=== PATIENT | female | born 1990 | race Caucasian/White ===

== ENCOUNTER 2018-03-12 12:47 | Observation (INO) ==
[2018-03-12] MEDS ORDERED: Betamethasone Acet/SodPhos 6 MG/ML MDV IM SCH (14:00)
[2018-03-12 14:58] LABS: Prothrombin Time 10.7 Seconds (9.4-12.1)
[2018-03-12 15:02] LABS: Rubella IgG Antibody POSITIVE (POSITIVE); Varicella Zoster IgG Antibody Positive
[2018-03-12 15:21] LABS: HIV-1&2 Antibody & p24 Ag Nonreactive (Nonreactive); Hepatitis B Surface Antigen Nonreactive (Nonreactive)
--- NOTE | 2018-03-12 15:59 | OB/GYN Progress Note ---
Date of Encounter: 03/12/18 Time of Encounter: 15:50 - Assessment and Plan (1) Vaginal bleeding Current Visit: Yes Status: Lexx Sparks is a 27 y/o who presented to the office initially with vaginal bleeding. She called yesterday with heavy vaginal bleeding that filled the toilet. She presented to the office and showed pictures on her phone and it was quite significant. She says she has stopped bleeding, no LOF or ctxs, feels good FM. U/S done in the office shows a 12cm bleed. She has a h/o delivery due to abruption and she is a smoker. Her glucola test today was 200. VE exam showed approx 30cc of blood, cervix examined for several mins after extraction of blood and no active bleeding noted, 1cm patient sent to L&D for monitoring, labs, BMZ 27 y/o @ 28+2 weeks Placenta abruption, h/o for abruption, smoker BMZ #1 given at 1423hrs, NST reactive, cervix unchanged @ 1cm, spoke to Dr Vitale about my findings (abruption, 12cm bleed on U/S, unable to keep patient on prolonged observation due to facility) patient is hemodynamically stable, O+, Coags normal, vitals stable ok for transfer to [facility] Objective - Vital Signs Vital Signs: Intake and Output 03/11/18 03/12/18 03/12/18 23:59 07:59 15:59 Other: Weight 120.5 kg Patient Weight 03/12/18 23:59 Weight 120.5 kg
== END 2018-03-12 16:45 | disposition other institution (70) ==
LOC: 1NENULAB
PROVIDERS: ADMIT Student in an Organized Health Care Education/Training Program; ATTEND Student in an Organized Health Care Education/Training Program

== ENCOUNTER → 2018-03-28 19:57 | Observation (INO) ==
[2018-03-28 19:46] LABS: Amphetamine Screen,Urine Negative ng/mL (Cutoff=1000); Barbiturate Screen,Urine Negative ng/mL (Cutoff=200); Benzodiazepines Screen,Urine Negative ng/mL (Cutoff=200); Cannabinoid Screen,Urine Negative ng/mL (Cutoff = 50); Cocaine Screen,Urine Negative ng/mL (Cutoff= 300); Opiate Screen,Urine Negative ng/mL (Cutoff=300); Phencyclidine Screen,Urine Negative ng/mL (Cutoff=25)
--- NOTE | 2018-03-29 01:57 | OB/GYN Progress Note ---
Date of Encounter: 03/29/18 Time of Encounter: 01:53 - Assessment and Plan (1) Vaginal bleeding Status: Acute 27 y/o @ 30+4 weeks who presented to L&D with vaginal bleeding, she has a h/o abruption at her prior and within the past 2 weeks, she was recently admitted to [facility] for 4 days and was given steroids and observed before discharge, SSE revealed clots in the vault but no active bleeding, cervix closed, no LOF or ctxs, CAT 1 tracing, ok for discharge to f/u outpt Objective - Vital Signs Vital Signs: Intake and Output 03/28/18 03/28/18 03/29/18 15:59 23:59 07:59 Other: Weight 55.883 kg
== END | disposition home or self-care (01) ==
LOC: 1NENULAB
PROVIDERS: ADMIT Student in an Organized Health Care Education/Training Program; ATTEND Student in an Organized Health Care Education/Training Program

== ENCOUNTER 2018-04-30 15:32 | Inpatient (IN) ==
[2018-04-30] MEDS ORDERED: *HR* Nalbuphine 10 MG/ML AMPUL IVP PRN (15:49)
[2018-04-30] MEDS ORDERED: Naloxone 0.4 MG/ML INJ IVP PRN (15:49)
[2018-04-30] MEDS ORDERED: Ondansetron 4 MG/2 ML VIAL IVP PRN ×3 (15:49→22:40)
[2018-04-30] MEDS ORDERED: Metoclopramide 10 MG/2 ML VIAL IVP PRN ×2 (15:49→22:40)
[2018-04-30] MEDS ORDERED: Famotidine 20 MG/2 ML VIAL IVP ONE (15:49)
[2018-04-30] MEDS ORDERED: Ringers Solution, Lactated 1,000 ML IVC ONE (15:49)
[2018-04-30] MEDS ORDERED: CeFAZolin Premix DUPLEX 2,000 MG/50 ML BAG IVPB ONE (15:49)
[2018-04-30] MEDS ORDERED: Oxytocin 20 units/ LR 1000 mL 20 UNIT/1,000 ML BAG IVC SCH ×2 (16:00→22:40)
[2018-04-30] MEDS ORDERED: Ringers Solution, Lactated 1,000 ML IVC SCH (16:00)
--- NOTE | 2018-04-30 16:02 | OB/GYN History & Physical ---
Date of Encounter: 04/30/18 Time of Encounter: 15:57 Assessment and Plan (1) Previous section Current visit: Yes Status: Chronic (2) labor Current visit: Yes Status: Acute Qualifiers: labor trimester: third trimester labor delivery status: without delivery Qualified Code(s): O60.03 - labor without delivery, third trimester (3) Vaginal bleeding Current visit: Yes Status: Acute History of Present Illness HPI: Ms. Raman is a 27 year old female Patient is 27-year-old 8 para 3 AB 4 white female who has a history of previous section. She called office today complaining of vaginal bleeding. She has history of subchorionic hemorrhage. Ultrasound examination BPP was 6 out of 8. Speculum exam revealed a large amount of blood. Cervix was dilated 4 cm 80% effaced -1 station. Reports irregular contractions. Past Med Surg Social Fam HX - Past Medical History Medical history: thyroid disease Additional medical history: h/o thyroid problems with 2nd and corrected Psychiatric history: no psych history - Past Surgical History Surgical History: Additional surgical history: x 2013 - Social History Smoking Status: Current every day smoker Smokeless Tobacco Status: No Alcohol use: none Drug use: none - Family History Mother Hx Family Cardiac Disorders: No Hx Family Endocrine Disorder: No Obstetrical History - Pregnancies : 8 Para: 3 Ab's: 4 Medications and Allergies One Tablet 1 tab PO DAILY 03/12/18 [History] Allergy/AdvReac Type Severity Reaction Status Date / Time No Known Allergies Allergy Verified 03/12/18 14:33 Review of System OB All systems PM: reviewed and no additional remarkable complaints except as stated - Genitourinary Genitourinary: amenorrhea - Menstruation Menstruation: amenorrhea Exam - Constitutional Constitutional: well developed, well nourished, no acute distress, average body habitus - HEENT HEENT: PERRL - Neck Neck exam: full ROM - Lungs Respiratory exam: CTAB - Cardiovascular Cardiovascular exam: RRR - Abdomen Abdomen: Present: gravid, non tender - Extremities Extremities exam: full ROM Deep Tendon Reflex Grade: 2+ Normal - Cervix Dilation: 4 Effacement: 80 Station: -1 - Uterus Uterus exam: Present: enlarged - Anus/Rectum Anus/Rectum: Present: normal perianal skin Results All other labs normal. - VTE Reasons for not Prescribing Prophylaxis: Treatment not Indicated - Low risk for VTE
[2018-04-30 16:12] LABS: Basophils % 0.3 %; Eosinophils # 0.1 K/mcL (0.0-0.6); Eosinophils % 0.6 %; Hematocrit 32.2 % (35.3-44.9); Hemoglobin 10.5 g/dL (11.5-15.4); Immature Granulocytes % 0.8 % (0-4); Lymphocytes # 3.1 K/mcL (0.6-4.6); Lymphocytes % 19.4 %; Mean Corpuscular HGB Conc 32.6 g/dL (31.6-35.5); Mean Corpuscular Hemoglobin 29.2 pg (28.0-33.3); Mean Corpuscular Volume 89.4 fL (83.0-100.0); Mean Platelet Volume 9.9 fL (9.4-12.4); Monocytes # 1.2 K/mcL (0.0-1.3); Monocytes % 7.6 %; Neutrophils # 11.3 K/mcL (1.6-8.9); Nucleated Red Blood Cells 0.1 /100 WBC (0); Platelet Count 236 K/mcL (140-400); Red Cell Distribution Width 11.9 % (11.5-14.5); Segmented Neutrophils % 71.3 %
[2018-04-30 16:18] LABS: Amphetamine Screen,Urine Negative ng/mL (Cutoff=1000); Barbiturate Screen,Urine Negative ng/mL (Cutoff=200); Benzodiazepines Screen,Urine Negative ng/mL (Cutoff=200); Cannabinoid Screen,Urine Negative ng/mL (Cutoff = 50); Cocaine Screen,Urine Negative ng/mL (Cutoff= 300); Opiate Screen,Urine Negative ng/mL (Cutoff=300); Phencyclidine Screen,Urine Negative ng/mL (Cutoff=25)
[2018-04-30] MEDS ORDERED: Ondansetron 4 MG/2 ML VIAL ONE (17:04)
[2018-04-30] MEDS ORDERED: Dexamethasone 4 MG/ML VIAL ONE (17:04)
[2018-04-30] MEDS ORDERED: Ringers Solution, Lactated 1,000 ML ONE ×2 (17:05→18:14)
[2018-04-30] MEDS ORDERED: *HR* Oxytocin 10 UNIT/ML VIAL IM ONE ×2 (17:05→18:15)
[2018-04-30] MEDS ORDERED: *HR* Morphine Sulfate/PF 10 MG/10 ML AMPUL ONE (17:05)
--- NOTE | 2018-04-30 17:05 | OB/GYN Procedure Note ---
Section - Date of procedure: 04/30/18 Preop diagnosis: desires repeat , other ( labor) Post-op diagnosis: same (Partial abruption) Procedure: repeat low transverse Surgeon: Jose Guadalupe Spencer Quantitated Blood Loss: 800 Was there an facilities assistant present: No Anesthesiologist: Keila Love Anesthesia Type: Spinal section complications: none Disposition: PACU Specimens: Placenta - (s) A Delivery Date: 04/30/18 Delivery Time: 17:39 Presentation: vertex Gender: Female Viability: Viable Pounds: 5 Ounces: 8 at 1 minute: 8 at 5 minutes: 8 Specimens collected: cord blood Placenta: complete extraction - Narrative Narrative: Patient taken to the operating room. After satisfactory spinal anesthesia was achieved, patient placed in supine position Singh catheter inserted and prepped and draped in usual manner. After appropriate timeout was obtained, the abdomen was entered through standard Maylard incision. The Elly retractor was placed. The peritoneum overlying the lower uterine segment was incised in U-shaped fashion. Uterine cavity was entered sharply and extended laterally. Membranes ruptured yielding port wine stained fluid consistent with abruption. With fundal pressure the head was delivered, torso delivered the umbilical cord double clamped and cut and the was handed to nursery staff further evaluation. Placenta was removed and sent to pathology for analysis. Uterus closed in single layer using 0 Monocryl. After assurance hemostasis, uterus placed back in abdominal cavity. The abdomen closed standard fashion using 0 PDS on the fascia and 3-0 Monocryl in the skin. Sterile dressing was applied. Patient did well was taken to recovery in satisfactory condition. Counts were correct.
[2018-04-30] MEDS ORDERED: EPHEDrine 50 MG/ML VIAL ONE (17:08)
--- NOTE | 2018-04-30 17:51 | Anesthesia Evaluation PreOp ---
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 Significant HX Other Medical History: Denies Any Significant HX, Other (GESTATIONAL DIABETES) Anesthesia History: No Prior Anesthetic Complications, Past Anesthesia : Yes Test: Positive Alcohol Use: none Drug use: none Medications and Allergies One Tablet 1 tab PO DAILY 03/12/18 [History] Allergy/AdvReac Type Severity Reaction Status Date / Time No Known Allergies Allergy Verified 03/12/18 14:33 - Meds/Allergy Pre-op Review Medications Reviewed: Yes Allergies Reviewed: No Beta Blockers on Current Med List: No Anesthesia Results - Labs 04/30/18 15:53 Anesthesia Exam 108/62 102 16 Height: 1.6 Weight: 57 NPO (# of Hours): MN Pain Scale: 0 - HEENT Pupil (Motor): Pupils equal Mallampati: II Teeth: Normal Oral Opening: Greater than 3 - SHIP CONSTRUCTION TEACHER LOC: Oriented SHIP CONSTRUCTION TEACHER Motor: Normal RUE, Normal LUE, Normal RLE, Normal LLE, Normal Face SHIP CONSTRUCTION TEACHER Sensory: Normal: RUE, LUE, RLE, LLE, Face - Cardiac Rhythm: Regular Murmur: None JVD: No Carotid Bruit: No - Pulmonary Breath Sounds: bilateral Clear Respiratory Effort: Symmetrical Anesthesia Assess/Plan ASA Score: 2 Level of consciousness: Cooperative Anesthetic Plan: Spinal Autologous Blood: No Monitoring Plan: Standard Monitors
--- NOTE | 2018-04-30 17:56 | Anesthesia Procedures ---
Addendum entered and electronically signed by Shelbi Yi CRNA 04/30/18 18:12: spinal dose bupivicaine 0.5% 2ml duramorph 0.3mg Original Note: Date of Encounter: 04/30/18 Time of Encounter: 17:40 Procedures: Anesthesia - Epidural/Spinal Patient ID/Chart reviewed: Yes Patient examined: Yes OB Eval: Gestational age: 35 OB Eval: : 4 OB Eval: Hx Para: 3 OB Eval: Dilated at (cm): 4 OB Eval: Contractions: Non-stressed pattern Consent Obtained: Yes Site Prep: Aseptic Technique, Sterile prep and drape, Povidone-Iodine 1% Patient position: upright Amount of Local Anesthetic used: 3 Touhy Needle Gauge: other Interspace Used: L4-L5 Loss of Resistance (AMY): No Blood: No CSF: Yes Paresthesia: Yes Vitals + FHT's: stable throughout see nursing notes
[2018-04-30] MEDS ORDERED: *HR* Morphine 2 MG/ML SYRINGE IVP PRN (17:57)
[2018-04-30] MEDS ORDERED: *HR* Promethazine 25 MG/ML VIAL IVP PRN (17:57)
[2018-04-30] MEDS ORDERED: Acetaminophen IV 1,000 MG/100 ML INFUS..BTL IVPB ONE (17:57)
[2018-04-30] MEDS ORDERED: Sennosides 8.6 MG TABLET PO PRN (22:40)
[2018-04-30] MEDS ORDERED: Simethicone 80 MG TAB.CHEW PO PRN (22:40)
[2018-04-30] MEDS ORDERED: Acetaminophen 325 MG TABLET PO PRN (22:40)
[2018-05-01] MEDS: *HR* OxyCODONE/APAP 5/325 TABLET PO PRN ×2 (05:44→16:39)
[2018-05-01 06:24] LABS: Basophils % 0.1 %; Eosinophils % 0.1 %; Hematocrit 25.9 % (35.3-44.9); Immature Granulocytes % 0.7 % (0-4); Lymphocytes # 2.5 K/mcL (0.6-4.6); Mean Corpuscular HGB Conc 32.4 g/dL (31.6-35.5); Mean Corpuscular Hemoglobin 28.8 pg (28.0-33.3); Mean Corpuscular Volume 88.7 fL (83.0-100.0); Mean Platelet Volume 9.8 fL (9.4-12.4); Monocytes # 1.6 K/mcL (0.0-1.3); Monocytes % 9.7 %; Neutrophils # 12.3 K/mcL (1.6-8.9); Platelet Count 205 K/mcL (140-400); Red Blood Count 2.92 M/mcL (3.82-4.97); Red Cell Distribution Width 11.7 % (11.5-14.5); Segmented Neutrophils % 74.4 %
[2018-05-01 06:37] LABS: Hemoglobin 8.4 g/dL (11.5-15.4)
[2018-05-01] MEDS: Prenatal Vit/FA 1 EACH TABLET PO SCH (08:50)
[2018-05-01] MEDS: Ibuprofen 600 MG TABLET PO PRN ×2 (08:50→21:08)
[2018-05-01] MEDS ORDERED: NON-FORMULARY MEDICATION 1 EACH EACH (Prenatal One Tablet 1 TAB) PO SCH (09:00)
--- NOTE | 2018-05-01 12:05 | OB/GYN Progress Note ---
Date of Encounter: 05/01/18 Time of Encounter: 12:02 - Assessment and Plan (1) Status post repeat low transverse section Current Visit: Yes Status: Acute continue routine postop/ care anticipate discharge home tomorrow (2) Breast feeding status of mother Current Visit: Yes Status: Acute support prn Subjective - Subjective Principal diagnosis: postop day 1 repeat c/s Interval history: Patient day 1 postop doing well. Patient denies any pain at this time. Infant is in the NICU at this time. Patient meeting day 1 milestones. ARIAN dressing. Patient reports: appetite normal, voiding normally, pain well controlled, ambulating normally : doing well, in NICU, nursing well (mother in pumping) Objective - Vital Signs Latest vital signs: Vital Signs Temp Pulse Resp BP Pulse Ox 05/01/18 10:00 16 05/01/18 08:51 98.2 F 60 16 114/58 99 05/01/18 04:15 98.5 F 55 16 103/66 98 05/01/18 00:15 98.3 F 61 16 97/52 98 04/30/18 23:15 98.5 F 61 16 108/64 98 04/30/18 22:15 98.2 F 53 16 101/55 96 04/30/18 21:45 98.4 F 50 16 112/58 98 04/30/18 21:08 98.1 F 60 16 111/59 97 Intake and Output 04/30/18 05/01/18 05/01/18 23:59 07:59 15:59 Output Total 750 / 750 1750 / 1750 Balance -750 / -750 -1750 / -1750 Output: Urine 750 / 750 200 / 200 Catheter 1550 / 1550 - Exam Lungs: bilateral: normal Chest: Normal S1, Normal S2 Extremities: Present: normal Abdomen: Present: normal appearance, soft Incision: Present: normal, dry, dressed (ARIAN dressing) Uterus: Present: normal, firm Fundal Height: 2 (U/2) - Labs Labs: Laboratory Results - last 24 hr 04/30/18 04/30/18 04/30/18 15:53 15:53 15:55 WBC 15.9 H RBC 3.60 L Hgb 10.5 L Hct 32.2 L MCV 89.4 MCH 29.2 MCHC 32.6 RDW 11.9 Plt Count 236 MPV 9.9 Immature Gran % 0.8 Seg Neutrophils % 71.3 Lymphocytes % 19.4 Monocytes % 7.6 Eosinophils % 0.6 Basophils % 0.3 Neutrophils # 11.3 H Lymphocytes # 3.1 Monocytes # 1.2 Eosinophils # 0.1 Basophils # 0.0 Nucleated RBCs/100 WBC 0.1 H Glucose Urine Opiates Screen Negative Ur Barbiturates Screen Negative Ur Phencyclidine Scrn Negative Ur Amphetamines Screen Negative U Benzodiazepines Scrn Negative Urine Cocaine Screen Negative U Marijuana (THC) Screen Negative Ur Drug Screen Interp See Below Blood Type O POSITIVE Antibody Screen NEGATIVE Crossmatch See Detail 05/01/18 05/01/18 06:01 06:01 WBC 16.6 H RBC 2.92 L Hgb 8.4 L D Hct 25.9 L MCV 88.7 MCH 28.8 MCHC 32.4 RDW 11.7 Plt Count 205 MPV 9.8 Immature Gran % 0.7 Seg Neutrophils % 74.4 Lymphocytes % 15.0 Monocytes % 9.7 Eosinophils % 0.1 Basophils % 0.1 Neutrophils # 12.3 H Lymphocytes # 2.5 Monocytes # 1.6 H Eosinophils # 0.0 Basophils # 0.0 Nucleated RBCs/100 WBC Glucose 100 Urine Opiates Screen Ur Barbiturates Screen Ur Phencyclidine Scrn Ur Amphetamines Screen U Benzodiazepines Scrn Urine Cocaine Screen U Marijuana (THC) Screen Ur Drug Screen Interp Blood Type Antibody Screen Crossmatch
[2018-05-02] MEDS: *HR* OxyCODONE/APAP 5/325 TABLET PO PRN ×2 (05:49→13:24)
[2018-05-02] MEDS: Prenatal Vit/FA 1 EACH TABLET PO SCH (08:59)
[2018-05-02] MEDS: Ibuprofen 600 MG TABLET PO PRN (08:59)
[2018-05-02 09:10] VITALS: BP 119/79
--- NOTE | 2018-05-02 12:29 | Discharge Summary ---
Date of Encounter: 05/02/18 Time of Encounter: 12:27 - Discharge Diagnosis (1) Breast feeding status of mother Priority: Primary Status: Acute (2) Status post repeat low transverse section Priority: Secondary Status: Acute Comments: Pt meeting post-op milestones. Discharge home with precautions. [facility] reviewed. Pt has history of subutex use with last rx September 2016. - Discharge Medications Prescriptions: Acetaminophen [Tylenol] 325 mg PO Q6H PRN #30 tablet PRN Reason: Fever/Pain Breast Pump [BREAST PUMP] 1 each .ROUTE AD #1 each Docusate [Colace] 100 mg PO BID #30 capsule Ferrous Sulfate 325 mg PO DAILY #30 tablet Ibuprofen [Motrin] 600 mg PO Q6H PRN #30 tablet PRN Reason: Cramping Home Medications: One Tablet 1 tab PO DAILY 03/12/18 [History] Acetaminophen [Tylenol] 325 mg PO Q6H PRN #30 tablet 05/02/18 [Rx] Breast Pump [BREAST PUMP] 1 each .ROUTE AD #1 each 05/02/18 [Rx] Docusate [Colace] 100 mg PO BID #30 capsule 05/02/18 [Rx] Ferrous Sulfate 325 mg PO DAILY #30 tablet 05/02/18 [Rx] Ibuprofen [Motrin] 600 mg PO Q6H PRN #30 tablet 05/02/18 [Rx] Simethicone [Gas-X] 80 mg PO TID PRN tab.chew 05/02/18 [Rx] Allergies/Adverse Reactions: Allergy/AdvReac Type Severity Reaction Status Date / Time No Known Allergies Allergy Verified 03/12/18 14:33 Data Procedures and tests throughout hospitalization: Laboratory Tests 04/30/18 04/30/18 04/30/18 15:53 15:53 15:55 WBC 15.9 H RBC 3.60 L Hgb 10.5 L Hct 32.2 L MCV 89.4 MCH 29.2 MCHC 32.6 RDW 11.9 Plt Count 236 MPV 9.9 Immature Gran % 0.8 Seg Neutrophils % 71.3 Lymphocytes % 19.4 Monocytes % 7.6 Eosinophils % 0.6 Basophils % 0.3 Neutrophils # 11.3 H Lymphocytes # 3.1 Monocytes # 1.2 Eosinophils # 0.1 Basophils # 0.0 Nucleated RBCs/100 WBC 0.1 H Glucose Urine Opiates Screen Negative Ur Barbiturates Screen Negative Ur Phencyclidine Scrn Negative Ur Amphetamines Screen Negative U Benzodiazepines Scrn Negative Urine Cocaine Screen Negative U Marijuana (THC) Screen Negative Ur Drug Screen Interp See Below Blood Type O POSITIVE Antibody Screen NEGATIVE Crossmatch See Detail 05/01/18 05/01/18 06:01 06:01 WBC 16.6 H RBC 2.92 L Hgb 8.4 L D Hct 25.9 L MCV 88.7 MCH 28.8 MCHC 32.4 RDW 11.7 Plt Count 205 MPV 9.8 Immature Gran % 0.7 Seg Neutrophils % 74.4 Lymphocytes % 15.0 Monocytes % 9.7 Eosinophils % 0.1 Basophils % 0.1 Neutrophils # 12.3 H Lymphocytes # 2.5 Monocytes # 1.6 H Eosinophils # 0.0 Basophils # 0.0 Nucleated RBCs/100 WBC Glucose 100 Urine Opiates Screen Ur Barbiturates Screen Ur Phencyclidine Scrn Ur Amphetamines Screen U Benzodiazepines Scrn Urine Cocaine Screen U Marijuana (THC) Screen Ur Drug Screen Interp Blood Type Antibody Screen Crossmatch Date of admission: 04/30/18 15:32 Primary care physician: PCP NONE Discharging clinician: Mary Cox Anticipated date of discharge: 05/02/18 - Patient Status Disposition: Home, Self-Care Condition: Good Functional capacity at discharge: independent ambulation Overall status at discharge: patient is progressing back to baseline - Discharge Instructions Follow Up With: NONE,PCP [Primary Care Provider] - Daljit Joseph MD [Partnered Physician] - Hospital Course Reason for admission: other (abruption) Delivery: section Episiotomy: none Laceration: none Other procedures: none complications: none Discharge diagnosis: delivery baby: female Hospital course: - Date of procedure: 04/30/18 Preop diagnosis: desires repeat , other ( labor) Post-op diagnosis: same (Partial abruption) Procedure: repeat low transverse Surgeon: Jose Guadalupe Spencer Quantitated Blood Loss: 800 Was there an social science research assistant present: No Anesthesiologist: Keila Love Anesthesia Type: Spinal section complications: none Disposition: PACU Specimens: Placenta - (s) Infant A Delivery Date: 04/30/18 Delivery Time: 17:39 Presentation: vertex Gender: Female Viability: Viable Pounds: 5 Ounces: 8 at 1 minute: 8 at 5 minutes: 8 Specimens collected: cord blood Placenta: complete extraction Time Attestation: Total time spent providing and/or coordinating discharge services: - VTE Reasons for not Prescribing Prophylaxis: Treatment not Indicated - Low risk for VTE Documentation of Mechanical Device: Graduated compression elastic hosiery Exam - Constitutional Vitals: Temp Pulse Resp BP Pulse Ox 98.1 F 68 16 119/79 97 05/02/18 08:45 05/02/18 08:45 05/02/18 08:45 05/02/18 08:45 05/02/18 08:45 General appearance IM: A&O X 3 - Respiratory Respiratory exam: Present: CTAB - Cardiovascular Cardiovascular exam IM: Present: RRR - GI/Abdominal GI/Abdominal exam IM: soft Incision: dressed (dressing with scant old drainage. ) - Uterine Tone: Firm Uterus Position: 2 Fingers Below Umbilicus - Extremities Exam Extremities exam IM: Present: normal inspection - Neurological Exam Neurological exam: normal gait, oriented X3
== END 2018-05-02 13:26 | disposition home or self-care (01) | DRG 786 ==
LOC: 1NENULAB → OBSVTOIN 15:32 → 1NENUOBS 22:10
PROVIDERS: ADMIT Advanced Practice Midwife; ATTEND Obstetrics & Gynecology